=== PATIENT | male | born 1955 | race Caucasian/White ===

== ENCOUNTER 2018-07-17 11:43 | Inpatient (IN) | payer MEDICARE, OTHER ==
[2018-07-17] VITALS (15 sets, daily range): BP systolic 106–153; BP diastolic 65–88
[~2018-07-17] VITALS: Ht 167.6 cm; Wt 83.5 kg
[~2018-07-17 11:43] MED LIST: ALPR1TAB2 PO; CITA20TA9 PO; INSU100I13 SQ; INSU100I17 SQ; LISI10TA2 PO
--- NOTE | 2018-07-17 12:13 | RAD ---
CT CODE STROKE HEAD WO Indication: focal weakness NO PREV Exposure: One or more of the following individualized dose reduction techniques were utilized for this examination: 1. Automated exposure control 2. Adjustment of the mA and/or kV according to patient size 3. Use of iterative reconstruction technique. Technique: Standard imaging without intravenous contrast. No prior study for comparison. Well-defined low-density areas in the right and left cerebellum, likely encephalomalacia or old ischemic event. Intracranial arterial calcifications are identified. Small area of low-density in the left thalamus also most likely due to nonacute ischemia. Low-density in the white matter bilaterally, a nonspecific finding, but which is commonly due to chronic small vessel ischemic disease in a patient of this age.. No evidence of acute intracranial hemorrhage, mass effect, midline shift or abnormal extra-axial fluid collection. There is prominence of ventricles and sulci compatible with atrophy. There is complete opacification of the partially visualized right maxillary sinus. The other partially seen sinuses are clear. Orbits appear unremarkable. No evidence of acute skull abnormality. IMPRESSION: 1. Chronic appearing findings as discussed above. 2. Right maxillary sinus disease. 3. No evidence of acute intracranial hemorrhage or mass effect. FOR INTERNAL CODING PURPOSES Critical result: Findings discussed with Dr. Chavez in the emergency room at 07/17/2018 12:09 PM. RESULT CODE: (C) Electronically signed by: Roel Huffman MD (07/17/2018 12:10 PM) [id number]
[2018-07-17 12:27] LABS: BASO % 0 % (0-3); EOS # 0.1 x10^3/uL (0.0-0.7); EOS % 1 % (0-3); HEMATOCRIT 38.3 % (39.0-53.0); HEMOGLOBIN 12.9 g/dL (13.0-17.5); LYMPH # 1.1 x10^3/uL (1.0-4.8); LYMPH % 12 % (24-48); MEAN CORPUSCULAR HEMOGLOBIN 32 pg (25-35); MEAN CORPUSCULAR HGB CONC 34 g/dL (31-37); MEAN CORPUSCULAR VOLUME 94 fL (79-100); MONO # 0.4 x10^3/uL (0.0-1.1); MONO % 5 % (0-9); NEUT % 82 % (31-73); PLATELET COUNT 237 x10^3/uL (140-400); RED BLOOD COUNT 4.07 x10^6/uL (4.30-5.70); RED CELL DISTRIBUTION WIDTH 13.1 % (11.5-14.5); WHITE BLOOD COUNT 8.6 x10^3/uL (4.0-11.0)
--- NOTE | 2018-07-17 12:32 | PHYS DOC ---
Past Medical History Past Medical History: Depression, Diabetes-Type II, Hypertension Past Surgical History: Tonsillectomy Alcohol Use: None Drug Use: None Adult General Chief Complaint Chief Complaint: near-syncope HPI HPI Patient is a 63 year old male who brought in by EMS because of near-syncope. Patient was at a vet office with his dog and had a syncope or near syncope associated and EMS was dispatched at 1110. EMS reported that patient had GCS of 14. Patient was confused at arrival to ER with facial droop and code stroke was activated. Patient was confused without slurred speech and history was limited. Review of Systems Review of Systems unable to obtain review of systems because of confusion Current Medications Current Medications Current Medications Medications (Trade) Dose Ordered Sig/Yashira Start Time Stop Time Status Last Admin Dose Admin Alteplase, Recombinant 0 ml @ 0 mls/hr Q1H 07/17/18 13:00 07/17/18 13:01 DC 07/17/18 13:07 72.6 MLS/HR Info (CONTRAST GIVEN -- Rx MONITORING) 1 each PRN DAILY PRN 07/17/18 12:45 07/19/18 12:44 Iohexol (Omnipaque 350 Mg/ml) 75 ml 1X ONCE 07/17/18 12:45 07/17/18 12:46 DC 07/17/18 13:30 75 ML Labetalol HCl (Normodyne Iv Push) 10 mg PRN Q10MIN PRN 07/17/18 13:00 Nicardipine HCl 50 mg/Sodium Chloride 250 ml @ 25 mls/hr CONT PRN PRN 07/17/18 13:00 Sodium Chloride 50 ml @ 0 mls/hr 1X ONCE 07/17/18 13:00 07/17/18 13:01 DC 07/17/18 14:03 72.5 MLS/HR Allergies Allergies Allergies Coded Allergies Type Severity Reaction Last Updated Verified codeine Allergy Intermediate 08/21/13 Yes Physical Exam Physical Exam Constitutional: Well nourished, mild distress, non-toxic appearance. [] HENT: Normocephalic, atraumatic, left facial droop. Eyes: PERRLA, EOMI, conjunctiva normal, no discharge. [] Neck: Normal range of motion, no tenderness, supple, no stridor. [] Cardiovascular:Heart rate regular rhythm, no murmur [] Lungs & Thorax: Bilateral breath sounds clear to auscultation [] Abdomen: Bowel sounds normal, soft, no tenderness, no masses, no pulsatile masses. [] Skin: Warm, dry, no erythema, no rash. [] Back: No tenderness, no CVA tenderness. [] Extremities: No tenderness, no cyanosis, no clubbing, ROM intact, no edema. [] Neurologic: Alert and oriented X 2, NIHS-10 Psychologic: Unable to evaluate. Current Patient Data Vital Signs Vital Signs Date Time Temp Pulse Resp B/P (MAP) Pulse Ox O2 Delivery O2 Flow Rate FiO2 07/17/18 14:15 82 18 99 07/17/18 11:43 98.6 138/69 (92) Room Air 98.6 Lab Values Laboratory Tests Test 07/17/18 12:20 07/17/18 12:37 07/17/18 12:58 White Blood Count 8.6 x10^3/uL (4.0-11.0) Red Blood Count 4.07 x10^6/uL (4.30-5.70) L Hemoglobin 12.9 g/dL (13.0-17.5) L Hematocrit 38.3 % (39.0-53.0) L Mean Corpuscular Volume 94 fL (79-100) Mean Corpuscular Hemoglobin 32 pg (25-35) Mean Corpuscular Hemoglobin Concent 34 g/dL (31-37) Red Cell Distribution Width 13.1 % (11.5-14.5) Platelet Count 237 x10^3/uL (140-400) Neutrophils (%) (Auto) 82 % (31-73) H Lymphocytes (%) (Auto) 12 % (24-48) L Monocytes (%) (Auto) 5 % (0-9) Eosinophils (%) (Auto) 1 % (0-3) Basophils (%) (Auto) 0 % (0-3) Neutrophils # (Auto) 7.0 x10^3uL (1.8-7.7) Lymphocytes # (Auto) 1.1 x10^3/uL (1.0-4.8) Monocytes # (Auto) 0.4 x10^3/uL (0.0-1.1) Eosinophils # (Auto) 0.1 x10^3/uL (0.0-0.7) Basophils # (Auto) 0.0 x10^3/uL (0.0-0.2) Prothrombin Time 13.4 SEC (11.7-14.0) Prothrombin Time INR 1.1 (0.8-1.1) PTT 24 SEC (24-38) Sodium Level 134 mmol/L (136-145) L Potassium Level 4.8 mmol/L (3.5-5.1) Chloride Level 96 mmol/L (98-107) L Carbon Dioxide Level 22 mmol/L (21-32) Anion Gap 16 (6-14) H Blood Urea Nitrogen 26 mg/dL (8-26) Creatinine 1.7 mg/dL (0.7-1.3) H Estimated GFR (Cockcroft-Gault) 41.2 BUN/Creatinine Ratio 15 (6-20) Glucose Level 178 mg/dL (70-99) H Calcium Level 9.6 mg/dL (8.5-10.1) Total Bilirubin 0.8 mg/dL (0.2-1.0) Aspartate Amino Transferase (AST) 16 U/L (15-37) Alanine Aminotransferase (ALT) 18 U/L (16-63) Alkaline Phosphatase 85 U/L (46-116) Creatine Kinase 101 U/L (39-308) Troponin I Quantitative < 0.017 ng/mL (0.000-0.055) Total Protein 7.3 g/dL (6.4-8.2) Albumin 4.0 g/dL (3.4-5.0) Albumin/Globulin Ratio 1.2 (1.0-1.7) Glucose (Fingerstick) 160 mg/dL (70-99) H Urine Color Yellow Urine Clarity Clear Urine pH 5.5 Urine Specific [place] 1.025 Urine Protein 30 mg/dL (NEG-TRACE) Urine Glucose (UA) Negative mg/dL (NEG) Urine Ketones (Stick) 15 mg/dL (NEG) Urine Blood Negative (NEG) Urine Nitrite Negative (NEG) Urine Bilirubin Moderate (NEG) Urine Urobilinogen Dipstick 1.0 mg/dL (0.2 mg/dL) Urine Leukocyte Esterase Negative (NEG) Urine RBC 0 /HPF (0-2) Urine WBC 1-4 /HPF (0-4) Urine Squamous Epithelial Cells Occ /LPF Urine Bacteria Few /HPF (0-FEW) Urine Mucus Slight /LPF Urine Opiates Screen Neg (NEG) Urine Methadone Screen Neg (NEG) Urine Barbiturates Neg (NEG) Urine Phencyclidine Screen Neg (NEG) Urine Amphetamine/Methamphetamine Neg (NEG) Urine Benzodiazepines Screen Pos (NEG) Urine Cocaine Screen Neg (NEG) Urine Cannabinoids Screen Neg (NEG) Urine Ethyl Alcohol Neg (NEG) Laboratory Tests 07/17/18 12:20 Laboratory Tests 07/17/18 12:20 EKG EKG EKG interpreted by me. EKG at 1210 showed normal sinus rhythm at rate of 77, normal [place] and QT intervals, no acute ST and T-wave abnormalities. Radiology/Procedures Radiology/Procedures [facility] [address] [place] [address] IMAGING REPORT Signed PATIENT: NALLELY SALGADO ACCOUNT: [id number] : 1955 LOCATION: ER AGE: 63 SEX: M EXAM STATUS: REG ER ORD. PHYSICIAN: VALENCIA MATHEWS MD REASON: code stroke ,NIH scale of 10 PROCEDURE: CT ANGIOGRAPHY HEAD AND NECK PQRS Compliance Statement: One or more of the following individualized dose reduction techniques were utilized for this examination: 1. Automated exposure control 2. Adjustment of the mA and/or kV according to patient size 3. Use of iterative reconstruction technique CT ANGIOGRAPHY HEAD AND NECK Clinical Indication: code stroke , NIH scale of 10 Comparison: CT head without contrast, earlier same day. Technique: Helical CT imaging from inferior to the aortic arch to the skull vertex is performed after 60 cc of Omnipaque [address] angiogram protocol. 3-D MIP reconstructions of the cervical carotid arteries and [place] are performed. PQRS Compliance Statement - Stenosis calculations for CT, MR and conventional angiography are based upon measurement of the distal ICA diameter in accordance with the NASCET methodology. Stenosis calculations for carotid ultrasound studies are derived from validated velocity criteria which are known to correlate with the NASCET methodology. Findings: Aortic arch branches are patent. Patent right common carotid artery. Patent left common carotid artery. Mild atherosclerotic calcification of the proximal internal carotid arteries, greater on the left than the right. There is no significant narrowing of these segments. The more distal cervical internal carotid arteries are patent. Atherosclerotic calcification at the origin of the right vertebral artery, narrowing is probably moderate, coronal image 25. Atherosclerotic calcification at the origin of the left vertebral artery, narrowing appears to be mild, coronal image 25. The cervical vertebral arteries are patent. No evidence of dissection. Atherosclerotic calcification with moderate narrowing of the distal left vertebral artery. There is short segment approximately 50% narrowing of the mid basilar artery, coronal image 21. There is persistent origin of the left posterior cerebral artery. There is a small caliber left P1 segment. The right posterior cerebral artery is patent. There is atherosclerotic calcification with about 60% stenosis of the distal right cavernous internal carotid artery. There is atherosclerotic calcification and high-grade stenosis of the distal cavernous left internal carotid artery. The middle and anterior cerebral arteries are patent. No intracranial aneurysm is identified. No abnormal enhancement in the brain parenchyma is identified. Right maxillary sinus is completely opacified. There is no cervical adenopathy. There are subcentimeter bilateral thyroid nodules. Median sternotomy wires and changes of CABG. Respiratory motion artifact in the lungs. No consolidation. Degenerative spondylosis of the cervical spine. The alignment is maintained. Ossification along the nuchal ligament is incidentally noted. IMPRESSION: 1. Atherosclerotic calcification at the origin of the vertebral arteries, probably moderate narrowing on the right and mild narrowing on the left. 2. Atherosclerotic calcification of the distal cavernous internal carotid arteries, approximately 60% narrowing on the right and severe narrowing on the left. 3. Short segment 50% narrowing of the mid basilar artery. 4. 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 Electronically signed by: Dakota Solis MD (07/17/2018 2:15 PM) [id number] DICTATED and SIGNED BY: DAKOTA SOLIS MD DATE: 07/17/18 1415 [facility] [address] [place] [address] IMAGING REPORT Signed PATIENT: NALLELY SALGADO ACCOUNT: [id number] : 1955 LOCATION: ER AGE: 63 SEX: M EXAM STATUS: PRE ER ORD. PHYSICIAN: VALENCIA MATHEWS MD REASON: focal weakness PROCEDURE: PORTABLE CHEST 1V Examination: PORTABLE CHEST 1V History: CODE STROKE, WEAKNESS, CONFUSION Comparison/Correlation: 09/09/2014 portable chest x-ray Findings: Portable frontal view chest was obtained. Sternal wires are present. Plate and screws overlie the lower sternum. Heart size and pulmonary vasculature are normal. No infiltrate, pneumothorax, or pleural effusion. No acute bony process. Impression: No active disease. Electronically signed by: Tom Khoury MD (07/17/2018 12:38 PM) [facility] DICTATED and SIGNED BY: TOM KHOURY MD DATE: 07/17/18 1238 [facility] [address] [place] [address] IMAGING REPORT Signed PATIENT: NALLELY SALGADO ACCOUNT: [id number] : 1955 LOCATION: ER AGE: 63 SEX: M EXAM STATUS: PRE ER ORD. PHYSICIAN: VALENCIA MATHEWS MD REASON: focal weakness PROCEDURE: CT CODE STROKE HEAD WO CT CODE STROKE HEAD WO Indication: focal weakness NO PREV Exposure: One or more of the following individualized dose reduction techniques were utilized for this examination: 1. Automated exposure control 2. Adjustment of the mA and/or kV according to patient size 3. Use of iterative reconstruction technique. Technique: Standard imaging without intravenous contrast. No prior study for comparison. Well-defined low-density areas in the right and left cerebellum, likely encephalomalacia or old ischemic event. Intracranial arterial calcifications are identified. Small area of low-density in the left thalamus also most likely due to nonacute ischemia. Low-density in the white matter bilaterally, a nonspecific finding, but which is commonly due to chronic small vessel ischemic disease in a patient of this age.. No evidence of acute intracranial hemorrhage, mass effect, midline shift or abnormal extra-axial fluid collection. There is prominence of ventricles and sulci compatible with atrophy. There is complete opacification of the partially visualized right maxillary sinus. The other partially seen sinuses are clear. Orbits appear unremarkable. No evidence of acute skull abnormality. IMPRESSION: 1. Chronic appearing findings as discussed above. 2. Right maxillary sinus disease. 3. No evidence of acute intracranial hemorrhage or mass effect. FOR INTERNAL CODING PURPOSES Critical result: Findings discussed with Dr. Mathews in the emergency room at 07/17/2018 12:09 PM. RESULT CODE: (C) Electronically signed by: Roel Huffman MD (07/17/2018 12:10 PM) [facility] DICTATED and SIGNED BY: ROEL HUFFMAN MD DATE: 07/17/18 1210 Course & Med Decision Making Course & Med Decision Making Pertinent Labs and Imaging studies reviewed. (See chart for details) Evaluation of patient in ER showed 63-year-old male patient brought in by EMS because of near syncope. Patient had facial droop and confusion and code stroke was activated. Patient had NIH scale of 10. Patient was a candidate for TPA because of needed. CT of head for bleeding and not having any indication at this TPA. Dr. Restrepo on-call neurologist was consulted at 12:30 and agreed with starting TPA and he recommended ct angio head and neck. Patient was informed about the plan of care. He was confused and was not able to sign consent. TPA was started at 1300 and NIH scale dropped to [address] angio of head and neck reported unremarkable and Dr. Restrepo evaluated the patient in ER. Patient was admitted to ICU. Patient requiring admission for further evaluation and treatment. Discussed with Dr. Solis who is in agreement with admission. Discussed findings and plan with patient and family, who acknowledge understanding and agreement. Dragon Disclaimer Dragon Disclaimer This electronic medical record was generated, in whole or in part, using a voice recognition dictation system. Departure Departure Impression: Primary Impression: Acute CVA (cerebrovascular accident) Additional Impressions: Renal insufficiency Anxiety Diabetes mellitus Disposition: ADMITTED INPATIENT (1429) Admitting Physician: Ludwig Solis Condition: GUARDED Referrals: LUDWIG SOLIS MD (PCP) NIHSS Stroke Scale NIH Stroke Scale: NIH Stroke Scale Response (Comments) Value Level of Consciousness: 0 Alert/Responsive 0 LOC Questions: 2 Answers neither correct 2 LOC Commands: 0 Performs both tasks 0 Best Gaze: 0 Normal 0 Visual: 0 No visual loss 0 Facial Palsy: 2 Partial paralysis 2 Motor - Left Arm 0 No drift 0 Motor - Right Arm 0 No drift 0 Motor - Left Leg 0 No drift 0 Motor: Right Leg 1 Drift but can hold 1 Limb Ataxia: 2 Two limbs 2 Sensory: 1 Mid to moderate loss 1 Best Language: 2 Severe aphasia 2 Dysathria: 0 Normal 0 Extinction and Inattention: 0 Normal 0 Total 10 Critical Care Time Critical care time was 70 minutes exclusive of procedures. Problem Qualifiers Additional Impressions: Diabetes mellitus Diabetes mellitus type: other specified (including KATELIN) Diabetes mellitus custodial insulin use: unspecified custodial insulin use status Chronic kidney disease stage: unspecified stage VALENCIA MATHEWS MD Jul 17, 2018 12:32
[2018-07-17 12:35] LABS: PROTHROMBIN TIME PATIENT 13.4 SEC (11.7-14.0)
--- NOTE | 2018-07-17 12:41 | RAD ---
Examination: PORTABLE CHEST 1V History: CODE STROKE, WEAKNESS, CONFUSION Comparison/Correlation: 09/09/2014 portable chest x-ray Findings: Portable frontal view chest was obtained. Sternal wires are present. Plate and screws overlie the lower sternum. Heart size and pulmonary vasculature are normal. No infiltrate, pneumothorax, or pleural effusion. No acute bony process. Impression: No active disease. Electronically signed by: Tom Ravi MD (07/17/2018 12:38 PM) [facility]
[2018-07-17] MEDS ORDERED: CONTRAST GIVEN. MC PRN (12:45)
[2018-07-17] MEDS ORDERED: IOHEXOL 350 MG/ML 100 ML VIAL. IV ONE (12:45)
[2018-07-17 12:46] LABS: CALCIUM 9.6 mg/dL (8.5-10.1); CREATININE 1.7 mg/dL (0.7-1.3); GFR 41.2; POTASSIUM 4.8 mmol/L (3.5-5.1)
[2018-07-17 12:51] LABS: ALBUMIN/GLOBULIN RATIO 1.2 (1.0-1.7); TOTAL BILIRUBIN 0.8 mg/dL (0.2-1.0); TOTAL PROTEIN 7.3 g/dL (6.4-8.2)
[2018-07-17] MEDS ORDERED: LABETALOL 20 MG/4 ML DISP.SYRIN. IVP PRN (13:00)
[2018-07-17] MEDS ORDERED: IV NORMAL SALINE 50ML 50 ML IV ONE (13:00)
[2018-07-17] MEDS ORDERED: ALTEPLASE IV SCH (13:00)
[2018-07-17] MEDS ORDERED: ALTEPLASE 8 MG IV ONE (13:00)
[2018-07-17 13:24] LABS: BILIRUBIN,URINE MODERATE (NEG); CLARITY,URINE CLEAR; COLOR,URINE YELLOW; NITRITE,URINE NEGATIVE (NEG); PH,URINE 5.5; PROTEIN,URINE 30 mg/dL (NEG-TRACE)
[2018-07-17 13:30] LABS: BARBITURATES NEG (NEG); BENZODIAZEPINES POS (NEG); CANNABINOIDS NEG (NEG); COCAINE NEG (NEG); METHADONE NEG (NEG); OPIATES NEG (NEG); PHENCYCLIDINE NEG (NEG)
[2018-07-17 13:31] LABS: AMPHETAMINE/METHAMPHETAMINE NEG (NEG)
[2018-07-17 14:16] LABS: BACTERIA,URINE FEW /HPF (0-FEW); RBC,URINE 0 /HPF (0-2); SQUAMOUS EPITHELIAL CELL,UR OCC /LPF
--- NOTE | 2018-07-17 14:18 | RAD ---
PQRS Compliance Statement: One or more of the following individualized dose reduction techniques were utilized for this examination: 1. Automated exposure control 2. Adjustment of the mA and/or kV according to patient size 3. Use of iterative reconstruction technique CT ANGIOGRAPHY HEAD AND NECK Clinical Indication: code stroke , NIH scale of 10 Comparison: CT head without contrast, earlier same day. Technique: Helical CT imaging from inferior to the aortic arch to the skull vertex is performed after 60 cc of Omnipaque [address] angiogram protocol. 3-D MIP reconstructions of the cervical carotid arteries and [place] are performed. PQRS Compliance Statement - Stenosis calculations for CT, MR and conventional angiography are based upon measurement of the distal ICA diameter in accordance with the NASCET methodology. Stenosis calculations for carotid ultrasound studies are derived from validated velocity criteria which are known to correlate with the NASCET methodology. Findings: Aortic arch branches are patent. Patent right common carotid artery. Patent left common carotid artery. Mild atherosclerotic calcification of the proximal internal carotid arteries, greater on the left than the right. There is no significant narrowing of these segments. The more distal cervical internal carotid arteries are patent. Atherosclerotic calcification at the origin of the right vertebral artery, narrowing is probably moderate, coronal image 25. Atherosclerotic calcification at the origin of the left vertebral artery, narrowing appears to be mild, coronal image 25. The cervical vertebral arteries are patent. No evidence of dissection. Atherosclerotic calcification with moderate narrowing of the distal left vertebral artery. There is short segment approximately 50% narrowing of the mid basilar artery, coronal image 21. There is persistent origin of the left posterior cerebral artery. There is a small caliber left P1 segment. The right posterior cerebral artery is patent. There is atherosclerotic calcification with about 60% stenosis of the distal right cavernous internal carotid artery. There is atherosclerotic calcification and high-grade stenosis of the distal cavernous left internal carotid artery. The middle and anterior cerebral arteries are patent. No intracranial aneurysm is identified. No abnormal enhancement in the brain parenchyma is identified. Right maxillary sinus is completely opacified. There is no cervical adenopathy. There are subcentimeter bilateral thyroid nodules. Median sternotomy wires and changes of CABG. Respiratory motion artifact in the lungs. No consolidation. Degenerative spondylosis of the cervical spine. The alignment is maintained. Ossification along the nuchal ligament is incidentally noted. IMPRESSION: 1. Atherosclerotic calcification at the origin of the vertebral arteries, probably moderate narrowing on the right and mild narrowing on the left. 2. Atherosclerotic calcification of the distal cavernous internal carotid arteries, approximately 60% narrowing on the right and severe narrowing on the left. 3. Short segment 50% narrowing of the mid basilar artery. 4. 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 Electronically signed by: Dakota Solis MD (07/17/2018 2:15 PM) [id number]
--- NOTE | 2018-07-17 14:39 | EKG ---
[facility] [address] [place] [address] Test Date: 2018-07-17 Test Time: 12:10:05 Pat Name: NALLELY SALGADO Department: Room: Gender: M Internet Database Specialist: : 1955 Requested By: VALENCIA MATHEWS Order Number: [id number] Reading MD: Jomar Kraus MD Measurements Intervals [place] Rate: 77 P: 0 NV: 124 QRS: 23 QRSD: 86 T: 34 QT: 384 QTc: 436 Interpretive Statements SINUS RHYTHM Electronically Signed On 07-21-2018 14:52:16 CDT by Jomar Kraus MD
--- NOTE | 2018-07-17 16:04 | PDOC2 ---
NEUROLOGY CONSULT Date of Admission Date of Admission DATE: 07/17/18 TIME: 15:48 Reason for Consult Reason for Consult: IMPRESSION: CVA syndrome s/p TPA. Metabolic encephalopathy. Confusion. Slurred speech, receptive aphasia mainly. Left side weakness. DM. HTN. Carotid A stenosis, severe in left side > right . Basilar A stenosis. Over weight. RECOMMENDATIONS/PLAN: TPA administrated after all criteria are met. CTA, performed, no acute thrombosis. ASA 325 mg daily, 1 st dose to be started 24-hours after TPA. Fasting lipid panel. TSH, VIT B 12. Carotid A US + Doppler. Echo + Bubble study. Swallow study. Please consult Vascular Surgery for ICA stenosis. OT/PT. HISTORY OF THE PRESENT ILLNESS: This is a 63-y-old male patient with history of DM, HTN, HLD. He was noted an episode as near syncope, MS changes, confusion, slurred speech, left side facial drooping and decreased strength in left side UE to be brought to the ER of [facility]. His initial NIH score was > 10. His HCT was negative to SAH, ICH etc. After all criteria were met, he was offered TPA which was eventually administrated. Stat CAT was also carried out which showed chronic stenosis, but no acute thrombosis. PAST MEDICAL HISTORY: DM. HTN. HLD. Knee pain. PAST SURGERY HISTORY: Tonsillectomy, Appendectomy. ALLERGY: NKDA MEDICATIONS: Refer to [facility] FAMILY HISTORY: Non contributory. SOCIAL HISTORY: Lives alone. Denies smoking, drinking, and illicit drug use. REVIEW OF SYSTEMS: Constitutional: No malnutrition, weight loss, cachexia. Head: No traumatic brain or head injury. Skin: No edema, or rash. Ear: No infection. Eyes: No vision loss or color blindness. Nose: No bleeding or purulent discharges. Hearing: No hearing decrease. Neck: No injury. Cardiac: CAD, s/p CABG ? HTN, HLD. Pulmonary: No COPD. GI: No GI ulcer, GI bleeding. Urinary/genital: No dysuria, incontinence, urinary retention. Endocrinologic: Diabetes Mellitus. Skeletomuscular: No muscular atrophy, deformity. Neurological: see HP. Psychiatric: Denies drug use/abuse. Otherwise, not [id number] review of systems. PHYSICAL EXAMINATION: General appearance is in acute distress. HEENT: Normocephalic and nontraumatic. Eyes, nose, ears, and throat are unremarkable. Neck is supple. No lymphadenopathy. No crepitus. Cardiovascular: S1, S2, regular rate and rhythm. Pulmonary: Clear to auscultation bilaterally. Abdomen: Bowel sounds are positive. Abdomen is soft, nontender, and nondistended. Extremities: No rash, lesions, or edema. No restriction of range of motion NEUROLOGICAL EXAMINATION: Awake. Not understand questions nor answer questions correctly. Not oriented to time, place and person. PERRL. EOMI. CN: Questionable left VII palsy? Muscle tone: within normal. Muscle strength: 4 left UE, and the rest 5. DTR: 2 Plantar reflex: Flexor response bilaterally Gait: not examined in bed. Sensory exam: no acute abnormal findings. No cerebellar signs elicited. F-T-N test fine. Current Medications Current Medications Current Medications Iohexol (Omnipaque 350 Mg/ml) 75 ml 1X ONCE IV Last administered on 07/17/18at 13:30; Start 07/17/18 at 12:45; Stop 07/17/18 at 12:46; Status DC Info (CONTRAST GIVEN -- Rx MONITORING) 1 each PRN DAILY PRN MC SEE COMMENTS; Start 07/17/18 at 12:45; Stop 07/19/18 at 12:44 Alteplase, Recombinant 0 ml @ 0 mls/hr 1X ONCE IV Last administered on 07/17/18at 13:00; Start 07/17/18 at 13:00; Stop 07/17/18 at 13:01; Status DC Alteplase, Recombinant 0 ml @ 0 mls/hr Q1H IV Last administered on 07/17/18at 13:07; Start 07/17/18 at 13:00; Stop 07/17/18 at 13:01; Status DC Sodium Chloride 50 ml @ 0 mls/hr 1X ONCE IV Last administered on 07/17/18at 14:03; Start 07/17/18 at 13:00; Stop 07/17/18 at 13:01; Status DC Labetalol HCl (Normodyne Iv Push) 10 mg PRN Q10MIN PRN IVP HYPERTENSION, SEE COMMENTS; Start 07/17/18 at 13:00 Nicardipine HCl 50 mg/Sodium Chloride 250 ml @ 25 mls/hr CONT PRN PRN IV HYPERTENSION, SEE COMMENTS; Start 4/22/19 at 13:00 Active Scripts Active Lantus Solostar (Insulin Glargine,Hum.rec.anlog) 300 Units/3 Ml Insuln.pen 50 Units SQ DAILY Novolog Flexpen (Insulin Aspart) 300 Units/3 Ml Insuln.pen 10 Units SQ TIDBFRMEAL Reported Xanax (Alprazolam) 1 Mg Tablet 1 Mg PO Celexa (Citalopram Hydrobromide) 20 Mg Tablet 20 Mg PO Lisinopril 10 Mg Tablet 10 Mg PO DAILY Allergies Allergies: Allergies Coded Allergies Type Severity Reaction Last Updated Verified codeine Allergy Intermediate 08/21/13 Yes ROS Review of System The patient denies any associated fevers, chills, headache, ear pain, rhinorrhea, sore throat, stiff neck, productive cough, chest pain, shortness of breath, back or flank pain, abdominal pain, nausea, vomiting, diarrhea, constipation, dysuria, rash, numbness, weakness, tingling, incontinence, difficulty ambulating, or diaphoresis. Physical Exam Physical Exam General: Well developed, well nourished, no acute distress, well appearing HEENT: Pupils equally round and reactive to light, EOMI, no discharge, normal conjunctiva Neck: Supple, no nuchal rigidity, no JVD, trachea midline, no tenderness Cardiac: RRR, no murmurs, no gallops, no rubs Chest/Lungs: CTAB, no wheeze, no rhonchi, no crackles Abdomen: soft, non-distended, no guarding, no peritoneal signs, non-tender Back: No tenderness Extremities: no edema, pulses intact, non-tender,capillary refill <3 sec bilateral upper and lower extremities, Neuro: Alert and oriented x 4, no focal deficits, normal speech Vitals Vitals: Vital Signs Date Time Temp Pulse Resp B/P (MAP) Pulse Ox O2 Delivery O2 Flow Rate FiO2 07/17/18 14:30 84 18 99 07/17/18 11:43 98.6 138/69 (92) Room Air 98.6 Labs Labs Laboratory Tests Test 07/17/18 12:20 07/17/18 12:37 07/17/18 12:58 White Blood Count 8.6 x10^3/uL (4.0-11.0) Red Blood Count 4.07 x10^6/uL (4.30-5.70) Hemoglobin 12.9 g/dL (13.0-17.5) Hematocrit 38.3 % (39.0-53.0) Mean Corpuscular Volume 94 fL (79-100) Mean Corpuscular Hemoglobin 32 pg (25-35) Mean Corpuscular Hemoglobin Concent 34 g/dL (31-37) Red Cell Distribution Width 13.1 % (11.5-14.5) Platelet Count 237 x10^3/uL (140-400) Neutrophils (%) (Auto) 82 % (31-73) Lymphocytes (%) (Auto) 12 % (24-48) Monocytes (%) (Auto) 5 % (0-9) Eosinophils (%) (Auto) 1 % (0-3) Basophils (%) (Auto) 0 % (0-3) Neutrophils # (Auto) 7.0 x10^3uL (1.8-7.7) Lymphocytes # (Auto) 1.1 x10^3/uL (1.0-4.8) Monocytes # (Auto) 0.4 x10^3/uL (0.0-1.1) Eosinophils # (Auto) 0.1 x10^3/uL (0.0-0.7) Basophils # (Auto) 0.0 x10^3/uL (0.0-0.2) Prothrombin Time 13.4 SEC (11.7-14.0) Prothromb Time International Ratio 1.1 (0.8-1.1) Activated Partial Thromboplast Time 24 SEC (24-38) Sodium Level 134 mmol/L (136-145) Potassium Level 4.8 mmol/L (3.5-5.1) Chloride Level 96 mmol/L (98-107) Carbon Dioxide Level 22 mmol/L (21-32) Anion Gap 16 (6-14) Blood Urea Nitrogen 26 mg/dL (8-26) Creatinine 1.7 mg/dL (0.7-1.3) Estimated GFR (Cockcroft-Gault) 41.2 BUN/Creatinine Ratio 15 (6-20) Glucose Level 178 mg/dL (70-99) Calcium Level 9.6 mg/dL (8.5-10.1) Total Bilirubin 0.8 mg/dL (0.2-1.0) Aspartate Amino Transf (AST/SGOT) 16 U/L (15-37) Alanine Aminotransferase (ALT/SGPT) 18 U/L (16-63) Alkaline Phosphatase 85 U/L (46-116) Creatine Kinase 101 U/L (39-308) Troponin I Quantitative < 0.017 ng/mL (0.000-0.055) Total Protein 7.3 g/dL (6.4-8.2) Albumin 4.0 g/dL (3.4-5.0) Albumin/Globulin Ratio 1.2 (1.0-1.7) Glucose (Fingerstick) 160 mg/dL (70-99) Urine Color Yellow Urine Clarity Clear Urine pH 5.5 Urine Specific Cook 1.025 Urine Protein 30 mg/dL (NEG-TRACE) Urine Glucose (UA) Negative mg/dL (NEG) Urine Ketones (Stick) 15 mg/dL (NEG) Urine Blood Negative (NEG) Urine Nitrite Negative (NEG) Urine Bilirubin Moderate (NEG) Urine Urobilinogen Dipstick 1.0 mg/dL (0.2 mg/dL) Urine Leukocyte Esterase Negative (NEG) Urine RBC 0 /HPF (0-2) Urine WBC 1-4 /HPF (0-4) Urine Squamous Epithelial Cells Occ /LPF Urine Bacteria Few /HPF (0-FEW) Urine Mucus Slight /LPF Urine Opiates Screen Neg (NEG) Urine Methadone Screen Neg (NEG) Urine Barbiturates Neg (NEG) Urine Phencyclidine Screen Neg (NEG) Urine Amphetamine/Methamphetamine Neg (NEG) Urine Benzodiazepines Screen Pos (NEG) Urine Cocaine Screen Neg (NEG) Urine Cannabinoids Screen Neg (NEG) Urine Ethyl Alcohol Neg (NEG) Laboratory Tests Test 07/17/18 12:20 07/17/18 12:37 07/17/18 12:58 White Blood Count 8.6 x10^3/uL (4.0-11.0) Red Blood Count 4.07 x10^6/uL (4.30-5.70) Hemoglobin 12.9 g/dL (13.0-17.5) Hematocrit 38.3 % (39.0-53.0) Mean Corpuscular Volume 94 fL (79-100) Mean Corpuscular Hemoglobin 32 pg (25-35) Mean Corpuscular Hemoglobin Concent 34 g/dL (31-37) Red Cell Distribution Width 13.1 % (11.5-14.5) Platelet Count 237 x10^3/uL (140-400) Neutrophils (%) (Auto) 82 % (31-73) Lymphocytes (%) (Auto) 12 % (24-48) Monocytes (%) (Auto) 5 % (0-9) Eosinophils (%) (Auto) 1 % (0-3) Basophils (%) (Auto) 0 % (0-3) Neutrophils # (Auto) 7.0 x10^3uL (1.8-7.7) Lymphocytes # (Auto) 1.1 x10^3/uL (1.0-4.8) Monocytes # (Auto) 0.4 x10^3/uL (0.0-1.1) Eosinophils # (Auto) 0.1 x10^3/uL (0.0-0.7) Basophils # (Auto) 0.0 x10^3/uL (0.0-0.2) Prothrombin Time 13.4 SEC (11.7-14.0) Prothromb Time International Ratio 1.1 (0.8-1.1) Activated Partial Thromboplast Time 24 SEC (24-38) Sodium Level 134 mmol/L (136-145) Potassium Level 4.8 mmol/L (3.5-5.1) Chloride Level 96 mmol/L (98-107) Carbon Dioxide Level 22 mmol/L (21-32) Anion Gap 16 (6-14) Blood Urea Nitrogen 26 mg/dL (8-26) Creatinine 1.7 mg/dL (0.7-1.3) Estimated GFR (Cockcroft-Gault) 41.2 BUN/Creatinine Ratio 15 (6-20) Glucose Level 178 mg/dL (70-99) Calcium Level 9.6 mg/dL (8.5-10.1) Total Bilirubin 0.8 mg/dL (0.2-1.0) Aspartate Amino Transf (AST/SGOT) 16 U/L (15-37) Alanine Aminotransferase (ALT/SGPT) 18 U/L (16-63) Alkaline Phosphatase 85 U/L (46-116) Creatine Kinase 101 U/L (39-308) Troponin I Quantitative < 0.017 ng/mL (0.000-0.055) Total Protein 7.3 g/dL (6.4-8.2) Albumin 4.0 g/dL (3.4-5.0) Albumin/Globulin Ratio 1.2 (1.0-1.7) Glucose (Fingerstick) 160 mg/dL (70-99) Urine Color Yellow Urine Clarity Clear Urine pH 5.5 Urine Specific Cook 1.025 Urine Protein 30 mg/dL (NEG-TRACE) Urine Glucose (UA) Negative mg/dL (NEG) Urine Ketones (Stick) 15 mg/dL (NEG) Urine Blood Negative (NEG) Urine Nitrite Negative (NEG) Urine Bilirubin Moderate (NEG) Urine Urobilinogen Dipstick 1.0 mg/dL (0.2 mg/dL) Urine Leukocyte Esterase Negative (NEG) Urine RBC 0 /HPF (0-2) Urine WBC 1-4 /HPF (0-4) Urine Squamous Epithelial Cells Occ /LPF Urine Bacteria Few /HPF (0-FEW) Urine Mucus Slight /LPF Urine Opiates Screen Neg (NEG) Urine Methadone Screen Neg (NEG) Urine Barbiturates Neg (NEG) Urine Phencyclidine Screen Neg (NEG) Urine Amphetamine/Methamphetamine Neg (NEG) Urine Benzodiazepines Screen Pos (NEG) Urine Cocaine Screen Neg (NEG) Urine Cannabinoids Screen Neg (NEG) Urine Ethyl Alcohol Neg (NEG) ELENI JENNINGS MD Jul 17, 2018 16:04
--- NOTE | 2018-07-17 17:35 | NUR ---
ADMISSION NOTE: Pt arrived to RM 106 via ED bed @ 1615. Pt hooked up to ICU monitors. NIH completed at bedside with ED RN, NIH 7. Pt having expressive aphasia so admission assessment questions limited. Pt able to tell me very little about himself. Pt does not have cell phone with him, no family contacts. Pt able to tell me he has a friend named Meghan in [place] but can not say her phone number. Vital signs stable. Will continue to monitor.
--- NOTE | 2018-07-17 17:55 | NUR ---
Routine consult called to Dr. Gonzalez for ICA Stenosis @ [id number].
--- NOTE | 2018-07-17 21:58 | NUR ---
Pt was able to verbalize the phone numbers of two family friends at 1999 this shift. Voicemails left on both phone numbers asking them to contact [facility]. No call backs received at this time.
[2018-07-18] VITALS (19 sets, daily range): BP systolic 127–182; BP diastolic 63–97
[2018-07-18 06:39] LABS: CHOLESTEROL/HDL RATIO 4.9
--- NOTE | 2018-07-18 06:59 | NUR ---
Pt did not void this shift. Pt bladder scanned at 0130, 667 mL present; pt scanned at 0400, 733 mL present. Pt attempted to urinate multiple times throughout the shift, stating he "felt the urge to go". Pts bladder was stimulated with pressure, pt attempted to stand and urinate with no success. Dr. Solis notified of urine retention at 0630. Order received to straight cath x1. 500 mL urine output noted in collection bag.
[2018-07-18] MEDS ORDERED: LISINOPRIL 10 MG TABLET PO SCH (09:00)
--- NOTE | 2018-07-18 09:00 | PDOC ---
Provider Note Provider Note dictated LUDWIG MURCIA MD Jul 18, 2018 09:00
--- NOTE | 2018-07-18 11:12 | RAD ---
Examination: DOPPLER CAROTID BILAT History: STROKE, WEAKNESS Technique: Duplex sonography of the cervical portion of both carotid arteries was performed. Real-time grayscale, color flow Doppler, and Doppler spectral waveform analysis is performed. Findings: Right side: Peak systolic flow velocity of the CCA is 115 cm/sec. Peak systolic flow velocity of the ICA is 63 cm/sec. The ICA/CCA ratio is 0.6. Peak end diastolic flow velocity of the ICA is 19 cm/sec. The peak systolic velocity of the ECA is 78 cm/sec. Left side: Peak systolic flow velocity of the CCA is 110 cm/sec. Peak systolic flow velocity of the ICA is 41 cm/sec. The ICA/CCA ratio is 0.4. Peak end diastolic flow velocity of the ICA is 13 cm/sec. Peak systolic flow velocity of the ECA is 72 cm/sec. Vertebral arteries: Bilateral vertebral arteries demonstrate antegrade flow. Mild carotid bulb plaque bilaterally is present. Mild common carotid arterial intimal thickening bilaterally diffusely noted. IMPRESSION: No hemodynamically significant internal carotid artery stenosis is identified. PQRS Compliance Statement - Stenosis calculations for CT, MR and conventional angiography are based upon measurement of the distal ICA diameter in accordance with the NASCET methodology. Stenosis calculations for carotid ultrasound studies are derived from validated velocity criteria which are known to correlate with the NASCET methodology. Electronically signed by: Tom Ravi MD (07/18/2018 11:09 AM) [facility]
--- NOTE | 2018-07-18 11:56 | CARD ---
MR#: [id number] Date of Study: 07/18/2018 Ordering Physician: ELENI JENNINGS, Referring Physician: Nabeel KINNEY: Alexsandra Castro RDCS APPROVED REPORT EXAM: Two-dimensional and M-mode echocardiogram with Doppler and color Doppler. Other Information Quality : Good INDICATION CVA/TIA Echo Enhancing Agent Agent/Amount Used: Agitated Saline 8mL 2D DIMENSIONS RVDd2.4 (2.9-3.5cm)Left Atrium(2D)3.6 (1.6-4.0cm) IVSd1.1 (0.7-1.1cm)Aortic Root(2D)2.9 (2.0-3.7cm) LVDd4.4 (3.9-5.9cm)LVOT Diameter2.1 (1.8-2.4cm) PWd0.8 (0.7-1.1cm)LVDs3.4 (2.5-4.0cm) FS (%) 21.8 %SV38.2 ml LVEF(%)55.0 (>50%) Aortic Valve AoV Peak Alvin.132.2cm/sAoV VTI17.7cm AO Peak GR.7.0mmHgLVOT VTI 15.33cm AO Mean GR.4mmHgAVA (VTI)2.90cm2 Mitral Valve MV E Sgfdtyey27.2cm/sMV DECEL QWZY43el MV A Jsfxhhmx23.7cm/sE/A Ratio0.7 TDI Lateral E' P. V2.92cm/sMedial E' P. V2.57cm/s E/Lateral E'18.2E/Medial E'20.7 Pulmonary Vein S1 Juqdadba26.7cm/sS2 Gsuwgzqw14.59cm/s D2 Noektsed76.6cm/s LEFT VENTRICLE The left ventricle is normal size. There is normal left ventricular wall thickness. The left ventricu lar systolic function is normal. The Ejection Fraction is 55-60%. There is normal LV segmental wall m otion. Transmitral Doppler flow pattern is Grade I-abnormal relaxation pattern. RIGHT VENTRICLE The right ventricle is normal size. The right ventricular systolic function is normal. ATRIA The left atrium size is normal. The right atrium size is normal. Injection of bubbles documented an i nteratrial shunt. AORTIC VALVE The aortic valve is normal in structure and function. Doppler and Color Flow revealed no significant aortic regurgitation. There is no significant aortic valvular stenosis. MITRAL VALVE The mitral valve is normal in structure and function. There is no evidence of mitral valve prolapse. There is no mitral valve stenosis. Doppler and Color-flow revealed trace mitral regurgitation. TRICUSPID VALVE The tricuspid valve is normal in structure and function. Doppler and Color Flow revealed no tricuspid valve regurgitation noted. There is no tricuspid valve stenosis. PULMONIC VALVE The pulmonic valve is not well visualized. Doppler and Color Flow revealed no pulmonic valvular regur gitation. There is no pulmonic valvular stenosis. GREAT VESSELS The aortic root is normal in size. The ascending aorta is normal in size. The IVC is normal in size a nd collapses >50% with inspiration. PERICARDIAL EFFUSION There is no evidence of significant pericardial effusion. Critical Notification Critical Value: No <Conclusion> The left ventricular systolic function is normal. The Ejection Fraction is 55-60%. There is normal LV segmental wall motion. Transmitral Doppler flow pattern is Grade I-abnormal relaxation pattern. Trace mitral regurgitation. There is no evidence of significant pericardial effusion. Injection of bubbles documented an interatrial shunt. Signed by : Som Kebede, Electronically Approved : 07/18/2018 11:55:51
--- NOTE | 2018-07-18 12:57 | PDOC2 ---
CONSULT Date of Consult Date of Consult DATE: 07/18/18 TIME: 11:12 Reason for Consult Reason for Consult: Symptomatic, bilateral carotid artery stenosis. Referring Physician Referring Physician: Lyndon Restrepo M.D. Identification/Chief Complaint Chief Complaint Near syncopal episode, confusion and garbled speech. Source Source: Chart review, Patient History of Present Illness Reason for Visit: The patient is a pleasant 63-year-old male with a history of diabetes, coronary artery disease, hypertension and hyperlipidemia who was at the Physical Security Engineer's office yesterday with his dog when he experienced a near syncopal episode, acute confusion, slurred speech with left-sided facial droop and left upper extremity weakness. He was brought to the emergency room where his initial NIH score was >10. He was deemed an appropriate candidate for thrombolysis and TPA was initiated. Initially, the patient was experiencing significant expressive aphasia and obtaining a history or ROS was extraordinarily limited. A CT of the head, CTA of the head and neck and carotid ultrasound have all been performed. Vascular Surgery has been consulted for carotid artery stenosis found on CTA. Results of the carotid ultrasound are still pending. The patient is seen at the bedside in the intensive care unit. Post TPA, the patient is now awake, alert and oriented. He is able to communicate well with mild residual expressive aphasia still present. Any left upper extremity weakness has resolved as well as left facial drooping. He is anxious and worried about his dogs and home safety based upon where he lives and asked that if any surgery needs to be done, he wants to "put it off" until he can verify his home and pets are secured. The RN states there is a friend who is following up on these issues. Past Medical History Past Medical History 1. Coronary artery disease. 2. Diabetes mellitus. 3. Hypertension. 4. Back pain. 5. Tremor of extremities. 6. Hyperlipidemia. 7. GERD. 8. Urinary retention. Past Surgical History Past Surgical History 1. Coronary artery bypass graft x3 bypasses 2016; SVG harvest left lower extremity. 2. Back surgery for spinal fluid aspiration. Family History Family History 1. Mother at age 88 years. History of diabetes and multiple strokes. 2. Father alive. History of prior stroke. Social History Social History 1. Lives alone. Not . No children. 2. Does not smoke cigarettes. Previous history of smoking cigars 45 years ago. 3. 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 4. Denies use of illicit drugs. 5. Denies alcohol consumption. Current Problem List Problem List Problems Medical Problems: (1) Acute CVA (cerebrovascular accident) Status: Acute (2) Anxiety Status: Acute (3) Diabetes mellitus Status: Acute (4) Renal insufficiency Status: Acute Current Medications Current Medications Current Medications Iohexol (Omnipaque 350 Mg/ml) 75 ml 1X ONCE IV Last administered on 07/17/18at 13:30; Start 07/17/18 at 12:45; Stop 07/17/18 at 12:46; Status DC Info (CONTRAST GIVEN -- Rx MONITORING) 1 each PRN DAILY PRN MC SEE COMMENTS; Start 07/17/18 at 12:45; Stop 07/19/18 at 12:44 Alteplase, Recombinant 0 ml @ 0 mls/hr 1X ONCE IV Last administered on 07/17/18at 13:00; Start 07/17/18 at 13:00; Stop 07/17/18 at 13:01; Status DC Alteplase, Recombinant 0 ml @ 0 mls/hr Q1H IV Last administered on 07/17/18at 13:07; Start 07/17/18 at 13:00; Stop 07/17/18 at 13:01; Status DC Sodium Chloride 50 ml @ 0 mls/hr 1X ONCE IV Last administered on 07/17/18at 14:03; Start 07/17/18 at 13:00; Stop 07/17/18 at 13:01; Status DC Labetalol HCl (Normodyne Iv Push) 10 mg PRN Q10MIN PRN IVP HYPERTENSION, SEE COMMENTS; Start 07/17/18 at 13:00 Nicardipine HCl 50 mg/Sodium Chloride 250 ml @ 25 mls/hr CONT PRN PRN IV HYPERTENSION, SEE COMMENTS; Start 07/17/18 at 13:00 Citalopram Hydrobromide (CeleXA) 20 mg HS PO ; Start 07/18/18 at 21:00 Lisinopril (Prinivil) 10 mg DAILY PO ; Start 07/18/18 at 09:00 Atorvastatin Calcium (Lipitor) 20 mg QHS PO ; Start 07/18/18 at 21:00 Metformin HCl (Glucophage) 500 mg BIDWMEALS PO ; Start 07/19/18 at 08:00 Active Scripts Active Lantus Solostar (Insulin Glargine,Hum.rec.anlog) 300 Units/3 Ml Insuln.pen 50 Units SQ DAILY Novolog Flexpen (Insulin Aspart) 300 Units/3 Ml Insuln.pen 10 Units SQ TIDBFRMEAL Reported Xanax (Alprazolam) 1 Mg Tablet 1 Mg PO Celexa (Citalopram Hydrobromide) 20 Mg Tablet 20 Mg PO Lisinopril 10 Mg Tablet 10 Mg PO DAILY Allergies Allergies: Coded Allergies: Penicillins (Verified Allergy, Intermediate, 07/17/18) codeine (Verified Allergy, Intermediate, 08/21/13) ROS General: No: Chills, Night Sweats, Fatigue PSYCHOLOGICAL ROS: YES: Anxiety; No: Behavioral Disorder, Depression, Disorientation Eyes: No Blurry vision, No Decreased vision, No Double vision, No Eye Pain, No Loss of vision HEENT: No: Heacaches, Visual Changes, Sore Throat, Epistaxis, Snoring Hematological and Lymphatic: No: Bleeding Problems, Blood Clots, Blood Transfusions Respiratory: No: Cough, Orthopnea, Pleuritic Pain, Shortness of breath, SOB with excertion Cardiovascular: No Chest Pain, No Palpitations, No Edema Gastrointestinal: Yes Nausea; No Vomiting, No Abdominal Pain, No Diarrhea, No Constipation Genitourinary: YES Retention Musculoskeletal: No Gait Disturbance, No Joint Pain, No Joint Swelling, No Muscle Pain Neurological: Yes Tremors Skin: No Dry Skin, No Eczema, No Mottling, No Rash Physical Exam General: Alert, Oriented X3, Cooperative, No acute distress HEENT: Atraumatic, PERRLA, Other (No carotid bruits ) Lungs: Clear to auscultation, Normal air movement Heart: Regular rate, Normal S1, Normal S2, No murmurs Abdomen: Normal bowel sounds, Soft, No tenderness Extremities: No clubbing, No cyanosis, No edema, Normal pulses Skin: No rashes, No breakdown, Other (Well healed sternotomy incision to mid- chest; healed left leg incision above knee.) Neuro: Strength at 5/5 X4 ext, Sensation intact, Cranial nerves 3-12 NL, Other (Mild residual expressive aphasia; mild slurring of speech.) MUSCULOSKELETAL: No joint tenderness, Full range of motion without pain Vitals VITALS Vital Signs Date Time Temp Pulse Resp B/P (MAP) Pulse Ox O2 Delivery O2 Flow Rate FiO2 07/18/18 10:00 96 26 156/64 (94) 98 Room Air 07/18/18 08:00 98.1 98.1 Labs Labs Laboratory Tests Test 07/17/18 12:20 07/17/18 12:37 07/17/18 12:58 07/18/18 05:45 White Blood Count 8.6 x10^3/uL (4.0-11.0) Red Blood Count 4.07 x10^6/uL (4.30-5.70) Hemoglobin 12.9 g/dL (13.0-17.5) Hematocrit 38.3 % (39.0-53.0) Mean Corpuscular Volume 94 fL (79-100) Mean Corpuscular Hemoglobin 32 pg (25-35) Mean Corpuscular Hemoglobin Concent 34 g/dL (31-37) Red Cell Distribution Width 13.1 % (11.5-14.5) Platelet Count 237 x10^3/uL (140-400) Neutrophils (%) (Auto) 82 % (31-73) Lymphocytes (%) (Auto) 12 % (24-48) Monocytes (%) (Auto) 5 % (0-9) Eosinophils (%) (Auto) 1 % (0-3) Basophils (%) (Auto) 0 % (0-3) Neutrophils # (Auto) 7.0 x10^3uL (1.8-7.7) Lymphocytes # (Auto) 1.1 x10^3/uL (1.0-4.8) Monocytes # (Auto) 0.4 x10^3/uL (0.0-1.1) Eosinophils # (Auto) 0.1 x10^3/uL (0.0-0.7) Basophils # (Auto) 0.0 x10^3/uL (0.0-0.2) Prothrombin Time 13.4 SEC (11.7-14.0) Prothromb Time International Ratio 1.1 (0.8-1.1) Activated Partial Thromboplast Time 24 SEC (24-38) Sodium Level 134 mmol/L (136-145) Potassium Level 4.8 mmol/L (3.5-5.1) Chloride Level 96 mmol/L (98-107) Carbon Dioxide Level 22 mmol/L (21-32) Anion Gap 16 (6-14) Blood Urea Nitrogen 26 mg/dL (8-26) Creatinine 1.7 mg/dL (0.7-1.3) Estimated GFR (Cockcroft-Gault) 41.2 BUN/Creatinine Ratio 15 (6-20) Glucose Level 178 mg/dL (70-99) Calcium Level 9.6 mg/dL (8.5-10.1) Total Bilirubin 0.8 mg/dL (0.2-1.0) Aspartate Amino Transf (AST/SGOT) 16 U/L (15-37) Alanine Aminotransferase (ALT/SGPT) 18 U/L (16-63) Alkaline Phosphatase 85 U/L (46-116) Creatine Kinase 101 U/L (39-308) Troponin I Quantitative < 0.017 ng/mL (0.000-0.055) Total Protein 7.3 g/dL (6.4-8.2) Albumin 4.0 g/dL (3.4-5.0) Albumin/Globulin Ratio 1.2 (1.0-1.7) Glucose (Fingerstick) 160 mg/dL (70-99) Urine Color Yellow Urine Clarity Clear Urine pH 5.5 Urine Specific [place] 1.025 Urine Protein 30 mg/dL (NEG-TRACE) Urine Glucose (UA) Negative mg/dL (NEG) Urine Ketones (Stick) 15 mg/dL (NEG) Urine Blood Negative (NEG) Urine Nitrite Negative (NEG) Urine Bilirubin Moderate (NEG) Urine Urobilinogen Dipstick 1.0 mg/dL (0.2 mg/dL) Urine Leukocyte Esterase Negative (NEG) Urine RBC 0 /HPF (0-2) Urine WBC 1-4 /HPF (0-4) Urine Squamous Epithelial Cells Occ /LPF Urine Bacteria Few /HPF (0-FEW) Urine Mucus Slight /LPF Urine Opiates Screen Neg (NEG) Urine Methadone Screen Neg (NEG) Urine Barbiturates Neg (NEG) Urine Phencyclidine Screen Neg (NEG) Urine Amphetamine/Methamphetamine Neg (NEG) Urine Benzodiazepines Screen Pos (NEG) Urine Cocaine Screen Neg (NEG) Urine Cannabinoids Screen Neg (NEG) Urine Ethyl Alcohol Neg (NEG) Triglycerides Level 178 mg/dL (0-150) Cholesterol Level 188 mg/dL (0-200) LDL Cholesterol, Calculated 114 mg/dL (0-100) VLDL Cholesterol, Calculated 36 mg/dL (0-40) Non-HDL Cholesterol Calculated 150 mg/dL (0-129) HDL Cholesterol 38 mg/dL (40-60) Cholesterol/HDL Ratio 4.9 Laboratory Tests Test 07/17/18 12:20 07/17/18 12:37 07/17/18 12:58 07/18/18 05:45 White Blood Count 8.6 x10^3/uL (4.0-11.0) Red Blood Count 4.07 x10^6/uL (4.30-5.70) Hemoglobin 12.9 g/dL (13.0-17.5) Hematocrit 38.3 % (39.0-53.0) Mean Corpuscular Volume 94 fL (79-100) Mean Corpuscular Hemoglobin 32 pg (25-35) Mean Corpuscular Hemoglobin Concent 34 g/dL (31-37) Red Cell Distribution Width 13.1 % (11.5-14.5) Platelet Count 237 x10^3/uL (140-400) Neutrophils (%) (Auto) 82 % (31-73) Lymphocytes (%) (Auto) 12 % (24-48) Monocytes (%) (Auto) 5 % (0-9) Eosinophils (%) (Auto) 1 % (0-3) Basophils (%) (Auto) 0 % (0-3) Neutrophils # (Auto) 7.0 x10^3uL (1.8-7.7) Lymphocytes # (Auto) 1.1 x10^3/uL (1.0-4.8) Monocytes # (Auto) 0.4 x10^3/uL (0.0-1.1) Eosinophils # (Auto) 0.1 x10^3/uL (0.0-0.7) Basophils # (Auto) 0.0 x10^3/uL (0.0-0.2) Prothrombin Time 13.4 SEC (11.7-14.0) Prothromb Time International Ratio 1.1 (0.8-1.1) Activated Partial Thromboplast Time 24 SEC (24-38) Sodium Level 134 mmol/L (136-145) Potassium Level 4.8 mmol/L (3.5-5.1) Chloride Level 96 mmol/L (98-107) Carbon Dioxide Level 22 mmol/L (21-32) Anion Gap 16 (6-14) Blood Urea Nitrogen 26 mg/dL (8-26) Creatinine 1.7 mg/dL (0.7-1.3) Estimated GFR (Cockcroft-Gault) 41.2 BUN/Creatinine Ratio 15 (6-20) Glucose Level 178 mg/dL (70-99) Calcium Level 9.6 mg/dL (8.5-10.1) Total Bilirubin 0.8 mg/dL (0.2-1.0) Aspartate Amino Transf (AST/SGOT) 16 U/L (15-37) Alanine Aminotransferase (ALT/SGPT) 18 U/L (16-63) Alkaline Phosphatase 85 U/L (46-116) Creatine Kinase 101 U/L (39-308) Troponin I Quantitative < 0.017 ng/mL (0.000-0.055) Total Protein 7.3 g/dL (6.4-8.2) Albumin 4.0 g/dL (3.4-5.0) Albumin/Globulin Ratio 1.2 (1.0-1.7) Glucose (Fingerstick) 160 mg/dL (70-99) Urine Color Yellow Urine Clarity Clear Urine pH 5.5 Urine Specific [place] 1.025 Urine Protein 30 mg/dL (NEG-TRACE) Urine Glucose (UA) Negative mg/dL (NEG) Urine Ketones (Stick) 15 mg/dL (NEG) Urine Blood Negative (NEG) Urine Nitrite Negative (NEG) Urine Bilirubin Moderate (NEG) Urine Urobilinogen Dipstick 1.0 mg/dL (0.2 mg/dL) Urine Leukocyte Esterase Negative (NEG) Urine RBC 0 /HPF (0-2) Urine WBC 1-4 /HPF (0-4) Urine Squamous Epithelial Cells Occ /LPF Urine Bacteria Few /HPF (0-FEW) Urine Mucus Slight /LPF Urine Opiates Screen Neg (NEG) Urine Methadone Screen Neg (NEG) Urine Barbiturates Neg (NEG) Urine Phencyclidine Screen Neg (NEG) Urine Amphetamine/Methamphetamine Neg (NEG) Urine Benzodiazepines Screen Pos (NEG) Urine Cocaine Screen Neg (NEG) Urine Cannabinoids Screen Neg (NEG) Urine Ethyl Alcohol Neg (NEG) Triglycerides Level 178 mg/dL (0-150) Cholesterol Level 188 mg/dL (0-200) LDL Cholesterol, Calculated 114 mg/dL (0-100) VLDL Cholesterol, Calculated 36 mg/dL (0-40) Non-HDL Cholesterol Calculated 150 mg/dL (0-129) HDL Cholesterol 38 mg/dL (40-60) Cholesterol/HDL Ratio 4.[address] ANGIOGRAPHY HEAD AND NECK Clinical Indication: code stroke , NIH scale of 10 Comparison: CT head without contrast, earlier same day. Findings: Aortic arch branches are patent. Patent right common carotid artery. Patent left common carotid artery. Mild atherosclerotic calcification of the proximal internal carotid arteries, greater on the left than the right. There is no significant narrowing of these segments. The more distal cervical internal carotid arteries are patent. Atherosclerotic calcification at the origin of the right vertebral artery, narrowing is probably moderate, coronal image 25. Atherosclerotic calcification at the origin of the left vertebral artery, narrowing appears to be mild, coronal image 25. The cervical vertebral arteries are patent. No evidence of dissection. Atherosclerotic calcification with moderate narrowing of the distal left vertebral artery. There is short segment approximately 50% narrowing of the mid basilar artery, coronal image 21. There is persistent origin of the left posterior cerebral artery. There is a small caliber left P1 segment. The right posterior cerebral artery is patent. There is atherosclerotic calcification with about 60% stenosis of the distal right cavernous internal carotid artery. There is atherosclerotic calcification and high-grade stenosis of the distal cavernous left internal carotid artery. The middle and anterior cerebral arteries are patent. No intracranial aneurysm is identified. No abnormal enhancement in the brain parenchyma is identified. Right maxillary sinus is completely opacified. There is no cervical adenopathy. There are subcentimeter bilateral thyroid nodules. Median sternotomy wires and changes of CABG. Respiratory motion artifact in the lungs. No consolidation. Degenerative spondylosis of the cervical spine. The alignment is maintained. Ossification along the nuchal ligament is incidentally noted. IMPRESSION: 1. Atherosclerotic calcification at the origin of the vertebral arteries, probably moderate narrowing on the right and mild narrowing on the left. 2. Atherosclerotic calcification of the distal cavernous internal carotid arteries, approximately 60% narrowing on the right and severe narrowing on the left. 3. Short segment 50% narrowing of the mid basilar artery. 4. Persistent origin of the left PATHOLOGY ASSISTANT. DOPPLER CAROTID BILAT History: STROKE, WEAKNESS Findings: Right side: Peak systolic flow velocity of the CCA is 115 cm/sec. Peak systolic flow velocity of the ICA is 63 cm/sec. The ICA/CCA ratio is 0.6. Peak end diastolic flow velocity of the ICA is 19 cm/sec. The peak systolic velocity of the ECA is 78 cm/sec. Left side: Peak systolic flow velocity of the CCA is 110 cm/sec. Peak systolic flow velocity of the ICA is 41 cm/sec. The ICA/CCA ratio is 0.4. Peak end diastolic flow velocity of the ICA is 13 cm/sec. Peak systolic flow velocity of the ECA is 72 cm/sec. Vertebral arteries: Bilateral vertebral arteries demonstrate antegrade flow. Mild carotid bulb plaque bilaterally is present. Mild common carotid arterial intimal thickening bilaterally diffusely noted. IMPRESSION: No hemodynamically significant internal carotid artery stenosis is identified. Assessment/Plan Assessment/Plan The patient is a pleasant 63-year-old male with a history of diabetes, coronary artery disease, hypertension and hyperlipidemia who was at the Physical Security Engineer's office yesterday with his dog when he experienced a near syncopal episode, acute confusion, slurred speech with left-sided facial droop and left upper extremity weakness. He was brought to the emergency room where his initial NIH score was >10. He was deemed an appropriate candidate for thrombolysis and TPA was initiated. Carotid artery duplex results now available for review and able to compare with results of the CTA of the head and neck. The results were reviewed by Dr. Ervin Fitzgerald as well as providing the patient's clinical course and symptomatology. 1. Symptomatic carotid artery disease with near complete resolve of symptoms with initiation of thrombolysis with TPA yesterday. The CTA of the head/neck reveal bilateral narrowing of the distal cavernous internal carotid arteries, left "severe" and right 60% as well as a short segment 50% narrowing of the mid basilar artery. The carotid Doppler results are now available and do not show any hemodynamically significant internal carotid artery stenosis. I have discussed these findings with Dr. Fitzgerald as well as the patient's presenting left-sided symptoms. Recommendation is to refer the patient to Interventional Neurology at [facility]. I have spoke with both Dr. Lyndon Restrepo and Dr. Solis regarding this recommendation. All are in agreement if the patient is willing to proceed. Antiplatelet therapy once able to initiate s/p TPA. 2. Coronary artery disease, status post CABG 3 years ago. Echocardiogram has been completed this morning. Results still pending. 3. Hypertension. Blood pressures have been slightly elevated during this admission but stable. Patient verbalizes non-compliance to routinely taking his antihypertensive medications. Educated patient on the affects of hypertension on vasculature. 4. Hyperlipidemia. Lipid profile performed upon admission with high LDL and low HDL. Patient admitted he stopped statin therapy after his CABG because he did not see the benefit of taking it. Educated patient on use of statin therapy in vascular disease especially in light of diabetes, stroke, and CAD. Patient states he is willing to consider taking again upon discharge. 5. Diabetes mellitus. Glucose levels elevated upon admission. Suspect non- compliance with home treatment of diabetes. Recommend checking HgbA1c. 6. Urinary retention. Patient unable to void requiring straight cath procedure. Patient states he has experienced urinary retention at home. Has not required treatment with medications yet. Continue to monitor. 7. Renal insufficiency with diabetes, unknown if acute or chronic or both. Elevated creatinine level upon admission. Patient states he is unaware of any kidney function problems in the past. Thank you for the opportunity to participate in the care of this most interesting patient. Patient is preparing to get MRI of the head. I have spoke with the patient and informed him of the results with recommendation of transferring to [facility] to be evaluated by Interventional Neurology for possible intervention. He is willing to proceed at this time. I have spent a total of 160 minutes with the patient, providing education, discussing the case with Dr.'s Fitzgerald, Misty and coordinating plans for possible transfer to [facility]. NIKOLAY WEINBERG APRN Jul 18, 2018 12:57
--- NOTE | 2018-07-18 13:00 | NUR ---
Pt's friend Facundo took all belongings from Security home to pt's house per pt's request. Pt's clothes still in room with pt.
[2018-07-18] MEDS ORDERED: ASPIRIN 325 MG TABLET PO SCH (14:00)
--- NOTE | 2018-07-18 14:07 | NUR ---
SS following for discharge planning. Request was made for transfer to . Surveyor, Meghan, contacted and made request for transfer. SS phoned and faxed clinical and demographics to at [phone]. SS will await acceptance decision from and will proceed accordingly.
--- NOTE | 2018-07-18 16:08 | NUR ---
SS following up with discharge planning. Pt accepted at . Accepting Doctor is Dr. Deo White. contacted pt RN and provided bed and report number, bed# [id number], report# [phone]. Pt will discharge today and transfer to , [address] [place] [id number], via [facility] Amb[facility] at 1800. Pt and pt's RN notified. Packet and ambulance form placed on chart.
--- NOTE | 2018-07-18 16:17 | PDOC ---
PROGRESS NOTES Assessment Assessment CVA syndrome s/p TPA. Metabolic encephalopathy. Confusion. Slurred speech, receptive aphasia mainly on 07/17/18. Left side weakness. DM. HTN. HLD. Carotid A stenosis, severe in left side > right . Basilar A stenosis. PFO? Over weight. RECOMMENDATIONS/PLAN: TPA administrated after all criteria were met on 07/17/18. CTA, performed, no acute thrombosis. A stenosis as above. ASA 325 mg daily, 1 st dose 24-hours after TPA. Lipitor HS. Consulted Vascular Surgery for ICA stenosis. Please consult Cardiology. OT/PT. HISTORY OF THE PRESENT ILLNESS: This is a 63-y-old male patient with history of DM, HTN, HLD. He was noted an episode as near syncope, MS changes, confusion, slurred speech, left side facial drooping and decreased strength in left side UE to be brought to the ER of [facility]. His initial NIH score was > 10. His HCT was negative to SAH, ICH etc. After all criteria were met, he was offered TPA which was eventually administrated. Stat CAT was also carried out which showed chronic stenosis, but no acute thrombosis. His left side weakness and receptive aphasia resolved on 07/18/18. PAST MEDICAL HISTORY: DM. HTN. HLD. Knee pain. PAST SURGERY HISTORY: Tonsillectomy, Appendectomy. ALLERGY: NKDA MEDICATIONS: Refer to [facility] FAMILY HISTORY: Non contributory. SOCIAL HISTORY: Lives alone. . Denies smoking, drinking, and illicit drug use. REVIEW OF SYSTEMS: Constitutional: No malnutrition, weight loss, cachexia. Head: No traumatic brain or head injury. Skin: No edema, or rash. Ear: No infection. Eyes: No vision loss or color blindness. Nose: No bleeding or purulent discharges. Hearing: No hearing decrease. Neck: No injury. Cardiac: CAD, s/p CABG ? HTN, HLD. Pulmonary: No COPD. GI: No GI ulcer, GI bleeding. Urinary/genital: No dysuria, incontinence, urinary retention. Endocrinologic: Diabetes Mellitus. Skeletomuscular: No muscular atrophy, deformity. Neurological: see HP. Psychiatric: Denies drug use/abuse. Otherwise, not [id number] review of systems. PHYSICAL EXAMINATION: General appearance is in subacute distress. HEENT: Normocephalic and nontraumatic. Eyes, nose, ears, and throat are u nremarkable. Neck is supple. No lymphadenopathy. No crepitus. Cardiovascular: S1, S2, regular rate and rhythm. Pulmonary: Clear to auscultation bilaterally. Abdomen: Bowel sounds are positive. Abdomen is soft, nontender, and nondistended. Extremities: No rash, lesions, or edema. No restriction of range of motion NEUROLOGICAL EXAMINATION: Awake. Speech is normal. Oriented to time, place and person. PERRL. EOMI. CN: No acute findings. Muscle tone: within normal. Muscle strength: 5 DTR: 2 Plantar reflex: Flexor response bilaterally Gait: not examined in bed. Sensory exam: no acute abnormal findings. No cerebellar signs elicited. Objective Objective Vital Signs Date Time Temp Pulse Resp B/P (MAP) Pulse Ox O2 Delivery O2 Flow Rate FiO2 07/18/18 15:00 96 20 164/97 (119) 96 Room Air 07/18/18 12:00 97.4 97.4 Intake and Output 07/18/18 07:00 Output Total 500 ml Balance -500 ml Output Urine Total 500 ml Vitals Signs Vitals VS - Last 72 Hours, by Label Date Time Temp Pulse Resp B/P (MAP) Pulse Ox O2 Delivery O2 Flow Rate FiO2 07/18/18 15:00 96 20 164/97 (119) 96 Room Air 07/18/18 14:00 112 21 164/97 (119) 95 Room Air 07/18/18 13:00 98 31 182/83 (116) 95 Room Air 07/18/18 12:28 105 158/92 07/18/18 12:00 Room Air 07/18/18 12:00 97.4 100 23 158/92 (114) 97 Room Air 97.4 07/18/18 11:00 98 27 154/87 (109) 99 Room Air 07/18/18 10:00 96 26 156/64 (94) 98 Room Air 07/18/18 09:00 102 23 163/74 (103) 97 Room Air 07/18/18 08:00 Room Air 07/18/18 08:00 98.1 88 21 146/76 (99) 94 Room Air 98.1 07/18/18 07:00 86 14 147/77 (100) 97 Room Air 07/18/18 06:00 88 16 127/74 (91) 98 Room Air 07/18/18 05:00 87 14 135/63 (87) 98 Room Air 07/18/18 04:00 98.2 87 16 144/81 (102) 97 Room Air 98.2 07/18/18 04:00 Room Air 07/18/18 03:00 90 12 151/76 (101) 95 Room Air 07/18/18 02:00 90 14 156/78 (104) 94 Room Air 07/18/18 01:00 100 16 150/74 (99) 98 Room Air 07/18/18 00:00 98.6 94 14 145/66 (92) 96 Room Air 98.6 07/17/18 23:59 Room Air 07/17/18 23:00 95 14 147/76 (99) 96 Room Air 07/17/18 22:00 94 18 140/73 (95) 97 Room Air 07/17/18 21:00 90 14 143/75 (97) 94 Room Air 07/17/18 20:30 96 16 124/75 (91) 96 Room Air 07/17/18 20:00 99.2 92 18 144/76 (98) 98 Room Air 99.2 07/17/18 20:00 Room Air 07/17/18 19:30 91 18 145/77 (99) 98 Room Air 07/17/18 19:00 93 16 141/74 (96) 96 Room Air 07/17/18 18:45 94 10 147/70 (95) 97 Room Air 07/17/18 18:15 88 12 145/80 (101) 91 Room Air 07/17/18 17:45 88 15 144/77 (99) 98 Room Air 07/17/18 17:15 90 24 153/88 (109) 99 Room Air 07/17/18 17:00 86 23 129/71 (90) 100 Room Air 07/17/18 16:45 84 21 148/75 (99) 100 Room Air 07/17/18 16:30 84 23 145/76 (99) 98 Room Air 07/17/18 16:15 98.3 82 18 106/65 (79) 99 Room Air 98.3 07/17/18 16:00 Room Air 07/17/18 16:00 96 18 96 07/17/18 15:45 86 18 98 07/17/18 15:30 86 18 95 07/17/18 15:15 90 18 100 07/17/18 15:00 88 18 99 07/17/18 14:45 86 18 97 07/17/18 14:30 84 18 99 07/17/18 14:15 82 18 99 07/17/18 14:00 88 18 100 07/17/18 13:45 84 18 100 07/17/18 13:30 84 18 96 07/17/18 13:15 80 18 100 07/17/18 13:00 80 18 100 07/17/18 12:45 82 18 100 07/17/18 12:30 82 18 100 07/17/18 12:15 78 24 100 07/17/18 12:10 76 23 100 07/17/18 12:05 76 20 100 07/17/18 11:43 98.6 76 20 138/69 (92) 100 Room Air 98.6 Laboratory Laboratory Laboratory Tests Test 07/18/18 05:45 Triglycerides Level 178 mg/dL (0-150) Cholesterol Level 188 mg/dL (0-200) LDL Cholesterol, Calculated 114 mg/dL (0-100) VLDL Cholesterol, Calculated 36 mg/dL (0-40) Non-HDL Cholesterol Calculated 150 mg/dL (0-129) HDL Cholesterol 38 mg/dL (40-60) Cholesterol/HDL Ratio 4.9 Medication Medications Current Medications Aspirin ([employer] Aspirin) 325 mg DAILYWBKFT PO Last administered on 07/18/18at 14:56; Start 07/18/18 at 14:00 Atorvastatin Calcium (Lipitor) 20 mg QHS PO ; Start 07/18/18 at 21:00 Citalopram Hydrobromide (CeleXA) 20 mg HS PO ; Start 07/18/18 at 21:00 Lisinopril (Prinivil) 10 mg DAILY PO Last administered on 07/18/18at 12:28; Start 07/18/18 at 09:00 Metformin HCl (Glucophage) 500 mg BIDWMEALS PO ; Start 07/19/18 at 08:00 Comment Review of Relevant I have reviewed the following items csooby (where applicable) has been applied. ELENI JENNINGS MD Jul 18, 2018 16:17
--- NOTE | 2018-07-18 16:58 | NUR ---
Called report to Td @ regarding pt's transport. Pt is scheduled to leave to @ 1800 via [facility]. RN will call family and update them on pt's departure.
--- NOTE | 2018-07-18 17:12 | RAD ---
MRI of the brain without contrast 07/18/2018 Clinical History: CVA. Post TPA therapy. Technique: Unenhanced T1-weighted sagittal and axial, T2-weighted axial and coronal and FLAIR, gradient echo and diffusion-weighted axial images of the brain were obtained. Findings: Comparison is made to the patient's CT scan of the head dated 07/17/2018. There is generalized parenchymal atrophy. Patchy, confluent and multiple focal areas of increased signal intensity are seen within the periventricular and subcortical white matter of both cerebral hemispheres on the FLAIR and T2-weighted images consistent with areas of small vessel ischemic disease. Old areas of infarction are seen involving both cerebellar hemispheres. These measure 1.8 to 2.2 cm in size. Old areas of lacunar infarction are seen involving the left and right thalamus. These measure 6 mm to 1.1 cm in size. No acute parenchymal abnormality is seen. No extra-axial fluid collection is seen. There is no MRI evidence of acute ischemia/infarction. Complete opacification of the right maxillary sinus due to severe mucosal thickening is seen. Mild mucosal thickening is seen throughout the remaining paranasal sinuses. Normal flow voids are seen within the major vascular structures surrounding the brain parenchyma. Impression: No acute parenchymal abnormality is seen. Electronically signed by: César Looney MD (07/18/2018 5:09 PM) [id number]
--- NOTE | 2018-07-18 18:44 | NUR ---
Pt left facility via [facility] at 1843. Transport called and updated on pt's departure. Belongings with pt.
[2018-07-18] MEDS ORDERED: ATORVASTATIN CALCIUM 20 MG TABLET PO SCH (21:00)
[2018-07-18] MEDS ORDERED: CITALOPRAM 20 MG TABLET. PO SCH (21:00)
[2018-07-19 00:18] LABS: HEMOGLOBIN A1C 6.5 % (4.8-5.6)
[2018-07-19] MEDS ORDERED: metFORMIN 500 MG TABLET PO SCH (08:00)
--- NOTE | 2018-07-19 08:22 | PDOC ---
Provider Note Provider Note [id number] LUDWIG MURCIA MD Jul 19, 2018 08:22
--- NOTE | 2018-07-19 09:16 | DS ---
DATE OF DISCHARGE: 07/18/2018 HOSPITAL SUMMARY: A 63-year-old white male with known chronic diabetes, came in with some right-sided weakness and some aphasia. This seemed to clear well with the use of TPA in the Emergency Room. CT scan of the head showed no acute lesions and the CTA showed evidence of intracranial left carotid artery stenosis without any actual stenosis of the internal carotid artery in the neck. Hemoglobin A1c was good at 6.5. Creatinine was up at 1.7, GFR 41, and cholesterol pretty good at 188, HDL 38, LDL 114. MRI of the brain showed no acute abnormality about 24 hours after admission. After TPA, he was monitored in the ICU with no further drug therapy with a statin as atorvastatin was reinstituted. Vascular Surgery saw in consultation and felt that he would best be served by transfer to [facility] for Interventional Radiology consideration of possible intervention for the intracranial left carotid artery, internal carotid artery stenosis that was likely the source of his symptoms. The patient consented to this and this was accomplished by medical transport and he was stable when he left. FINAL DIAGNOSES: 1. Acute stroke, left-sided with a resolving aphasia. 2. Severe internal carotid artery stenosis, left sided. 3. Type 2 diabetes mellitus, well controlled. 4. Mild hyperlipidemia. 5. Chronic kidney disease, III, stable. OPERATIONS AND PROCEDURES: TPA. COMPLICATIONS: None. CONSULTATIONS: Dr. Robbins and Dr. Restrepo. DISPOSITION: He was transferred to [facility] by medical transport, stable at time of discharge, with no residual neurologic defects and clear mental status. LUDWIG MURCIA MD DR: RIP/roberto JOB#: [id number] / [id number]
--- NOTE | 2018-07-21 08:18 | PDOC ---
Provider Note Provider Note [id number] LUDWIG MURCIA MD Jul 21, 2018 08:18
--- NOTE | 2018-07-21 09:42 | HP ---
ADMIT DATE: 07/17/2018 CHIEF COMPLAINT: Probable stroke. HISTORY OF PRESENT ILLNESS: A 63-year-old white male known to us from the office with hypertension and type 2 diabetes, was last seen 6 months ago and came in with left-sided stroke symptoms including aphasia and the mild right-sided weakness. CT of the head was clear and he was given TPA and his symptoms largely improved and he is in the ICU now and doing better. CTA has showed evidence of left internal artery carotid stenosis distal to the cervical access area. Vascular Surgery has been consulted. PAST HISTORY: Controlled diabetes, now only on metformin. He does not take a statin by choice. He is on lisinopril. He is only seen about once or twice a year by choice as well. ALLERGIES: PENICILLIN and CODEINE. SOCIAL HISTORY: Single, employed, nonsmoker, nondrinker. FAMILY HISTORY: Unremarkable. REVIEW OF SYSTEMS: No other complaints. OBJECTIVE: ENT: All within normal limits. NECK: No masses, nodes or bruits. LUNGS: Clear. CARDIOVASCULAR: Regular rate. No murmur. ABDOMEN: Soft, benign and nontender. EXTREMITIES: Unremarkable. Good pedal and radial pulses. NEUROLOGIC: He has no evidence of aphasia at this time. He is mildly confused with his thought processes, but oriented and moves all extremities well with no sign of any focal neurologic deficits. GENITOURINARY AND RECTAL: Deferred. ASSESSMENT: Acute cerebrovascular accident, left middle cerebral artery distribution, much improved with TPA. Risk factors include type 2 diabetes mellitus, primarily. PLAN: As ordered. LUDWIG MURCIA MD DR: RIP/roberto JOB#: [id number] / [id number]
== END 2018-07-18 18:43 | disposition short-term general hospital (02) | DRG 61 ==
LOC: ER 11:43 → 1 WEST ICU 14:29
PROVIDERS: ADMIT Family Medicine; ATTEND Family Medicine
DX: I65.23 Occlusion and stenosis of bilateral carotid arteries (principal); G93.41 Metabolic encephalopathy; R47.01 Aphasia; F41.9 Anxiety disorder, unspecified; R29.810 Facial weakness; K21.9 Gastro-esophageal reflux disease without esophagitis; E11.22 Type 2 diabetes mellitus with diabetic chronic kidney disease; E66.3 Overweight; E78.5 Hyperlipidemia, unspecified; I12.9 Hypertensive chronic kidney disease with stage 1 through stage 4 chronic kidney disease, or unspecified chronic kidney disease; R33.9 Retention of urine, unspecified; N18.3 Chronic kidney disease, stage 3 (moderate); F32.9 Major depressive disorder, single episode, unspecified; I25.10 Atherosclerotic heart disease of native coronary artery without angina pectoris; Z88.5 Allergy status to narcotic agent; Z68.29 Body mass index [BMI] 29.0-29.9, adult; Z90.49 Acquired absence of other specified parts of digestive tract; Z95.1 Presence of aortocoronary bypass graft; Z83.3 Family history of diabetes mellitus; Z79.82 Long term (current) use of aspirin; Z82.3 Family history of stroke; Z87.891 Personal history of nicotine dependence; Z91.19 Patient's noncompliance with other medical treatment and regimen
CPT/HCPCS: 36415; 37195; 70450; 70496; 70498; 70551; 71045; 80053; 80061; 80307; 81001; 82550; 82962; 83036; 84484; 85025; 85610; 85730; 87641; 93005; 93306; 93880; 96360; J2997; Q9967; 92610; 99291-25

== ENCOUNTER 2020-08-16 22:34 | Emergency (ER) | payer MEDICARE ==
[~2020-08-16] VITALS: Ht 167.6 cm; Wt 95.5 kg
[~2020-08-16 22:34] MED LIST changes: +LISI10TA16 PO; -LISI10TA2 PO
[2020-08-16 23:02] VITALS: BP 144/94
--- NOTE | 2020-08-16 23:21 | ED.ADGEN ---
Past Medical History Past Medical History: Diabetes-Type II, Hypertension, Stroke Additional Past Medical Histor: triple bypass Past Surgical History: No Surgical History Smoking Status: Never Smoker Alcohol Use: Occasionally Drug Use: None General Adult EDM: Chief Complaint: MECHANICAL FALL HPI: HPI: Patient is a 65 year old male coming after a fall from standing at home. Patient was cleaning up vomit from his dog concerning for breeze when he lost his footing and fell over onto his left side. Mainly complaining of pain in his left upper arm and shoulder. Says he is a little bit sore on his left lower extremities and head but says he did not hit his hard. Was able to scoot to the phone to call his friend. Is taking Plavix due to previous three-vessel CABG and stroke. Review of Systems: Review of Systems: All other systems within normal limits except for as noted in the HPI Current Medications: Current Medications Medications (Trade) Dose Ordered Sig/Yashira Start Time Stop Time Status Last Admin Dose Admin Acetaminophen/ Hydrocodone Bitart (Lortab 5/325) 1 tab 1X ONCE 08/17/20 00:30 08/17/20 00:32 DC 08/17/20 00:27 1 TAB Fentanyl Citrate (Fentanyl 2ml Vial) 75 mcg 1X ONCE 08/16/20 23:45 08/16/20 23:46 DC 08/16/20 23:50 75 MCG Ondansetron HCl (Zofran) 4 mg 1X ONCE 08/16/20 23:45 08/16/20 23:46 DC 08/16/20 23:50 4 MG Allergies: Allergies: Allergies Coded Allergies Type Severity Reaction Last Updated Verified Penicillins Allergy Intermediate 07/17/18 Yes codeine Allergy Intermediate 08/21/13 Yes morphine Allergy Intermediate 08/16/20 Yes Physical Exam: PE: Constitutional: Well developed, well nourished, no acute distress, non-toxic appearance. [] HENT: Normocephalic, atraumatic, bilateral external ears normal, nose normal. [] Eyes: PERRLA, conjunctiva normal, no discharge. [] Neck: No rigidity, supple, no stridor. [] Cardiovascular: Regular rate and rhythm, brisk cap refill [] Lungs & Thorax: Non labored symmetric respirations, no tachypnea or respiratory distress [] Abdomen: Soft, nondistended. Skin: Warm, dry, no erythema, no rash. [] Back: Unremarkable Extremities: No deformities, range of motion grossly intact, no lower extremity edema. Swelling and tenderness over left shoulder and left elbow. Pain with movement of left fifth finger [] Neurologic: Alert and oriented X 3, no focal deficits noted. [] Psychologic: Affect normal, judgement normal, mood normal. [] Current Patient Data: Vital Signs: Vital Signs Date Time Temp Pulse Resp B/P (MAP) Pulse Ox O2 Delivery O2 Flow Rate FiO2 08/17/20 00:27 16 98 Room Air 08/16/20 23:02 98.8 89 144/94 (111) 98.8 EKG: EKG: [] Heart Score: C/O Chest Pain: No Risk Factors: Risk Factors: DM, Current or recent (<one month) smoker, HTN, HLP, family history of CAD, obesity. Risk Scores: Score 0 - 3: 2.5% MACE over next 6 weeks - Discharge Home Score 4 - 6: 20.3% MACE over next 6 weeks - Admit for Clinical Observation Score 7 - 10: 72.7% MACE over next 6 weeks - Early Invasive Strategies Radiology/Procedures: Radiology/Procedures: Two-view left shoulder HISTORY: Pain status post fall AP Y views There is a comminuted fracture the neck of the humerus with mild posterior angul ation. The glenohumeral relationship is normal. There are median sternotomy wires. IMPRESSION: Acute traumatic fracture of the neck of the humerus. End impression Two-view left humerus: AP lateral views There is a moderately comminuted fracture of the neck of the left humerus with mild posterior angulation. IMPRESSION: Acute fracture likely humerus. End impression Left finger: AP view of the left hand was obtained as well as collimated lateral oblique views of the fourth and fifth fingers The visualized osseous structures appear grossly intact. IMPRESSION: No acute findings. Course & Med Decision Making: Course & Med Decision Making Pertinent Labs and Imaging studies reviewed. (See chart for details) Shoulder immobilizer placed and instruction to follow-up with orthopedic surgery given to patient. [] Dragon Disclaimer: Dragon Disclaimer: This electronic medical record was generated, in whole or in part, using a voice recognition dictation system. Departure Departure Impression: Primary Impression: Fracture of proximal end of left humerus Disposition: 01 HOME / SELF CARE / HOMELESS Condition: STABLE Referrals: LUDWIG MURCIA MD (PCP) Patient Instructions: Shoulder Fracture (Proximal Humerus or Glenoid)-[facility] Additional Instructions: [facility] [id number] [facility] [place], [address] [address] [] Scripts Hydrocodone/Acetaminophen (Hydrocodone-Acetamin 7.5-325) 1 Each Tablet 1 EACH PO PRN Q4-6HRS PRN for PAIN for 5 Days, #20 TAB Prov: CHRISTIANO CHAVEZ MD 08/17/20 CHRISTIANO CHAVEZ MD August 16, 2020 23:21
[2020-08-16] MEDS ORDERED: fentaNYL PF VIAL 100 MCG/2 ML VIAL IVP ONE (23:45)
[2020-08-16] MEDS ORDERED: ONDANSETRON PF 4 MG/2 ML VIAL. IVP ONE (23:45)
[2020-08-17] MEDS ORDERED: HYDR-2763 PO (00:10)
--- NOTE | 2020-08-17 00:21 | RAD ---
Two-view left shoulder HISTORY: Pain status post fall AP Y views There is a comminuted fracture the neck of the humerus with mild posterior angulation. The glenohumer al relationship is normal. There are median sternotomy wires. IMPRESSION: Acute traumatic fracture of the neck of the humerus. End impression Two-view left humerus: AP lateral views There is a moderately comminuted fracture of the neck of the left humerus with mild posterior angulat ion. IMPRESSION: Acute fracture likely humerus. End impression Left finger: AP view of the left hand was obtained as well as collimated lateral oblique views of the fourth and f ifth fingers The visualized osseous structures appear grossly intact. IMPRESSION: No acute findings. Electronically signed by: Ezequiel King III, MD (08/17/2020 12:19 AM) [facility]
[2020-08-17] MEDS ORDERED: HYDROcodone/APAP 5/325MG 1 TAB TABLET PO ONE (00:30)
== END 2020-08-17 01:01 | disposition home or self-care (01) ==
LOC: ER 22:34
DX: S42.202A Unspecified fracture of upper end of left humerus, initial encounter for closed fracture (principal); E11.9 Type 2 diabetes mellitus without complications; I10 Essential (primary) hypertension; Z86.73 Personal history of transient ischemic attack (TIA), and cerebral infarction without residual deficits; Z88.0 Allergy status to penicillin; Z88.5 Allergy status to narcotic agent; W18.39XA Other fall on same level, initial encounter; Y93.89 Activity, other specified; Y92.89 Other specified places as the place of occurrence of the external cause; Y99.8 Other external cause status
CPT/HCPCS: 29105; 73030; 73060; 73140; 96374; 96375; 99284; J2405; J3010